=== PATIENT | female | born 1960 | race Caucasian/White ===

== ENCOUNTER → 2023-01-14 08:52 | Outpatient (CLI) | payer BC, SELFPAY ==
--- NOTE | ~2023-01-14 | MR_ITS ---
MRI of the brain Clinical History: Multiple sclerosis Technique: Axial and sagittal T1-weighted images were acquired. These were followed by axial T2-weigh chelsey, diffusion weighted, gradient, and FLAIR images. Sagittal FLAIR images were also performed. Follo wing intravenous administration of 17 cc MultiHance gadolinium, T1-weighted fat-sat imaging was perfo rmed in the axial, coronal, and sagittal planes. COMPARISON: 10/22/2018 Findings: There are several scattered focal FLAIR hyperintense white matter lesions, several which de monstrate radial orientation, compatible with demyelinating plaques of multiple sclerosis. Plaques ar e increased in number mildly since prior exam. No enhancing/active plaque clearly identified. No acute infarct, intracranial hemorrhage, or mass lesion seen otherwise. Ventricles and subarachnoid spaces are unremarkable. Orbits are unremarkable. There is right maxillar y sinus disease. Remaining paranasal sinuses and mastoid air cells are clear. Major intracranial flow voids appear intact. Sagittal midline structures are intact. No abnormal postcontrast enhancement identified. IMPRESSION: Several scattered white matter lesions are consistent with demyelinating plaques of multiple sclerosi s. Plaques are mildly increased in number since prior exam. No active/enhancing plaque identified. Reviewed, dictated and finalized at location M. H FINISHING RANGE OPERATOR IMPRESSION: Several scattered white matter lesions are consistent with demyelinating plaque s of multiple sclerosis. Plaques are mildly increased in number since prior exa m. No active/enhancing plaque identified.
--- NOTE | ~2023-01-14 | MR_ITS ---
MRI of the thoracic spine Clinical History: Multiple sclerosis Technique: Axial T2-weighted and gradient images, and sagittal T1-weighted, T2-weighted, and STIR criselda ges were acquired. Following intravenous administration of 17 cc MultiHance gadolinium, T1-weighted f at-sat imaging was performed in the axial and sagittal planes. Findings: No fracture or subluxation seen in the thoracic spine. Vertebral bodies maintain normal hei ght and alignment. No bone marrow signal abnormality seen. There is a small central disc protrusion at the T8-T9 level. Remaining thoracic discs are normal in p osition. No other disc bulge or herniation seen. No spinal canal stenosis, cord compression, or neura l foraminal narrowing evident at any thoracic level. No abnormal signal evident in the thoracic spinal cord. No abnormal postcontrast enhancement identified. Paravertebral soft tissues are unremarkable. Impression: No spinal cord abnormality in the thoracic spine. Small central disc protrusion at T8-T9. Reviewed, dictated and finalized at [facility]. ELAIN ENAMEL INSTALLER Impression: No spinal cord abnormality in the thoracic spine. Small central disc protrusion at T8-T9.
--- NOTE | ~2023-01-14 | MR_ITS ---
MRI of the cervical spine Clinical History: Multiple sclerosis Technique: Axial T2-weighted and gradient images, and sagittal T1-weighted, T2-weighted, and STIR criselda ges were acquired. Following intravenous administration of 17 cc MultiHance gadolinium, T1-weighted f at-sat imaging was performed in the axial and sagittal planes. Findings: There is no fracture or subluxation of the cervical spine. Vertebral bodies maintain normal height and alignment. No bone marrow signal abnormality seen. At C5-C6, there is a central disc bulge, without spinal canal stenosis, cord compression, or neural f oraminal narrowing. No other disc bulge or herniation seen. No spinal canal stenosis, cord compression, or neural foramin al narrowing seen at the remaining cervical levels. There is a T2 hyperintense cord lesion in the left side of the spinal cord at the C3 level, involving the length of 1.3 cm. No abnormal postcontrast enhancement seen. Paravertebral soft tissues are unremarkable. Impression: Spinal cord lesion at the C3 level, consistent with demyelinating plaque of multiple sclerosis, as de tailed above. No associated postcontrast enhancement. Minimal disc bulge at C5-C6. Reviewed, dictated and finalized at [facility]. E MAKER Impression: Spinal cord lesion at the C3 level, consistent with demyelinating plaque of mul tiple sclerosis, as detailed above. No associated postcontrast enhancement. Minimal disc bulge at C5-C6.
== END ==
PROVIDERS: PCP Family Medicine
DX: G35 Multiple sclerosis (principal); M51.24 Other intervertebral disc displacement, thoracic region
CPT/HCPCS: 70553; 72156; 72157; A9577

== ENCOUNTER → 2023-11-22 08:51 | Outpatient (CLI) | payer BC, SELFPAY ==
--- NOTE | ~2023-11-22 | MR_ITS ---
EXAMINATION: MR cervical spine wo/w con DATE: 11/22/2023 10:55 INDICATION: Multiple sclerosis. TECHNIQUE: Magnetic resonance imaging (MRI) of the cervical spine was performed without and with 17 w as MultiHance intravenous contrast. COMPARISON: Cervical spine MRI 01/14/2023 FINDINGS: There is 2 mm anterolisthesis of C3 on C4. Vertebral body heights are normal. There is a he mangioma in C7 vertebral body. There is mildly decreased disc height at C5-C6. There is increased T2- weighted signal intensity in the spinal cord at C3. The following disc levels are specifically discus sed: C2-C3: The disc does not extend beyond the endplate margin. There is no uncovertebral joint osteoarth ritis. There is no facet joint osteoarthritis. There is no neural foraminal stenosis. There is no selena tral canal stenosis. C3-C4: The disc does not extend beyond the endplate margin. There is no uncovertebral joint osteoarth ritis. There is ankylosis of the right facet joint with mild hypertrophy. There is no neural foramina l stenosis. There is no central canal stenosis. C4-C5: The disc does not extend beyond the endplate margin. There is no uncovertebral joint osteoarth ritis. There is mild bilateral facet joint osteoarthritis. There is no neural foraminal stenosis. The re is no central canal stenosis. C5-C6: There is a central extrusion. There is mild bilateral uncovertebral joint osteoarthritis. Ther e is mild bilateral facet joint osteoarthritis. There is no neural foraminal stenosis. There is mild central canal stenosis. C6-C7: The disc does not extend beyond the endplate margin. There is no uncovertebral joint osteoarth ritis. There is mild bilateral facet joint osteoarthritis. There is no neural foraminal stenosis. The re is no central canal stenosis. C7-T1: The disc does not extend beyond the endplate margin. There is no uncovertebral joint osteoarth ritis. There is mild left facet joint osteoarthritis. There is no neural foraminal stenosis. There is no central canal stenosis. IMPRESSION: 1. Stable spinal cord lesion at C3, consistent with multiple sclerosis. 2. Mild cervical spondylosis. Reviewed, dictated and finalized at location A. S TENDER STAR SIGNAL
--- NOTE | ~2023-11-22 | MR_ITS ---
EXAMINATION: MR thoracic spine wo/w con DATE: 11/22/2023 10:56 INDICATION: Multiple sclerosis. TECHNIQUE: Magnetic resonance imaging (MRI) of the thoracic spine was performed without and with 17 m L MultiHance intravenous contrast. Sagittal localizer T1-weighted FSE of the cervical spine was obtai nakul. Thoracic spine sequences included sagittal T2-weighted FSE, sagittal T1-weighted FSE, sagittal T 2-weighted FS FSE, and axial T2-weighted FSE. COMPARISON: Thoracic spine MRI 01/14/2023 FINDINGS: There is 4 degrees levocurvature of thoracic spine. Vertebral body heights are normal. Ther e is mildly decreased disc height at T8-T9. At T8-T9, there is a central extrusion with mild central canal stenosis. There is multilevel mild facet joint osteoarthritis. No neural foraminal stenosis. Th e spinal cord signal intensity is normal. IMPRESSION: 1. Normal thoracic spinal cord. 2. Mild thoracic spondylosis. Reviewed, dictated and finalized at location A. SETTER
--- NOTE | ~2023-11-22 | MR_ITS ---
EXAMINATION: MR brain/brain stem wo/w con DATE: 11/22/2023 10:55 INDICATION: Multiple sclerosis. TECHNIQUE: Magnetic resonance imaging (MRI) of the brain and brainstem was performed without and with 17 mL MultiHance intravenous contrast. COMPARISON: Brain MRI 01/14/2023 FINDINGS: There is an old infarct involving the left basal ganglia and anterior limb left internal ca psule. There are approximately 5 lesions of increased T2-weighted signal intensity involving the cere bral white matter including periventricular and subcortical lesions. There is no acute ischemic infar ct infarct or intracranial hemorrhage. The ventricles are normal in size. There are likely changes of right ocular lens replacement surgery. Right maxillary sinus is small and completely opacified. The mastoid air cells are normal. IMPRESSION: 1. 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 2. Stable white matter lesions, consistent with chronic small vessel ischemic disease and/or multiple sclerosis. Reviewed, dictated and finalized at location A. AL CHIEF CREATIVE OFFICER IMPRESSION: 1. 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 2. Stable white matter lesions, consistent with chronic small vessel ischemic d isease and/or multiple sclerosis.
== END ==
DX: G35 Multiple sclerosis (principal); M43.05 Spondylolysis, thoracolumbar region; M43.02 Spondylolysis, cervical region; I25.2 Old myocardial infarction
CPT/HCPCS: 70553; 72156; 72157; A9577